=== PATIENT | female | born 1965 | race Asian ===

== ENCOUNTER 2019-08-23 10:27 | Day surgery (SDC) | payer OTHER ==
[2019-08-22 16:49] VITALS: BMI 21.2
[2019-08-23 11:59] VITALS: TEMP 97.8
[2019-08-23 12:39] VITALS: BP 112/63; PULSE 76
--- NOTE | 2019-08-24 09:38 | PATH ---
Surgical Pathology Report Patient Name: CORWIN AGUIRRE [facility]. Rec. #: [id number] /Age/Gender: 1965 (Age: 54) / F Account: [id number] Location: [facility]-ENDOSCOPY Taken: 08/23/2019 Received: 08/23/2019 Reported: 08/24/2019 Physicians: Danita Michel M.D. Specimen(s) Received ILEOCECAL VALVE Clinical History Screening Postoperative diagnosis: Normal colonoscopy Final Diagnosis ILEOCECAL VALVE, BIOPSY: JUNCTIONAL MUCOSA WITH PROMINENT LYMPHOID AGGREGATES. Electronically Signed Karla Graham M.D. Gross Description Received in formalin, labeled "biopsy ileocecal valve" is a wren, irregular portion of soft tissue measuring 0.5 cm. in greatest dimension. The specimen is submitted in toto in one cassette. /08/23/2019 [facility]/08/23/2019
== END 2019-08-23 12:52 | disposition home or self-care (01) ==
LOC: JASU-ENDO 10:27
PROVIDERS: ATTEND Internal Medicine Gastroenterology
PROC: 0DBC8ZX Excision of Ileocecal Valve, Via Natural or Artificial Opening Endoscopic, Diagnostic (ICD-10-PCS; principal; 2019-08-23 12:00)
DX: Z12.11 Encounter for screening for malignant neoplasm of colon (principal)